=== PATIENT | female | born 1985 | race Caucasian/White ===

== ENCOUNTER 2018-01-15 19:03 | Inpatient (IN) | payer OTHER ==
[2018-01-15 19:54] VITALS: BMI 33.3
[2018-01-15 20:21] LABS: BASO # 0.1 K/uL (0.0-0.2); BASO % 0.8 % (0.0-2.0); EOS # 0.1 K/uL (0.0-0.7); EOS % 0.6 % (0.0-4.0); HEMOGLOBIN 12.7 g/dL (12.0-16.0); LYMPH # 1.6 K/uL (1.0-4.3); LYMPH % 14.3 % (20.0-40.0); MEAN CELL VOLUME 87.1 fl (81.0-99.0); MEAN CORPUSCULAR HEMOGLOBIN 28.3 pg (27.0-31.0); MEAN CORPUSCULAR HGB CONC 32.5 g/dL (33.0-37.0); MEAN PLATELET VOLUME 10.1 fl (7.2-11.7); MONO # 0.9 K/uL (0.0-0.8); MONO % 8.3 % (0.0-10.0); NEUT # 8.5 K/uL (1.8-7.0); NRBC % 0.2 % (0.0-0.0); RBC 4.48 Mil/uL (3.80-5.20); RED CELL DISTRIBUTION WIDTH 14.5 % (11.5-14.5); WHITE BLOOD COUNT 11.2 K/uL (4.8-10.8)
[2018-01-15 20:44] LABS: CALCIUM 9.7 mg/dL (8.4-10.2); GFR AFRICAN-AMERICAN > 60; GFR NON-AFRICAN AMERICAN > 60
[2018-01-15 20:46] LABS: ALBUMIN 4.3 g/dL (3.5-5.0); ALT/SGPT 18 U/L (9-52); AST/SGOT 72 U/L (14-36); BLOOD UREA NITROGEN 11 mg/dl (7-17)
[2018-01-15] MEDS ORDERED: Lactated Ringer's 1,000 ML IV SCH (21:30)
[2018-01-15] MEDS ORDERED: Penicillin G Potassium 5 MU in Sodium Chloride 0.9% 50 ML IVPB ONE (21:30)
--- NOTE | 2018-01-15 22:39 | OBADHP ---
Datetime: 01/15/2018 21:32 Pelvic Type - PN: Adequate Extremities - PN: Normal Abdomen - PN: Normal Back - PN: Not Done Breast - PN: Not Done Lungs - PN: Normal Heart - PN: Normal Thyroid - PN: Not Done Neurologic - PN: Normal HEENT - PN: Normal General - PN: Normal FHR - Baseline A Provider: 150 Membranes, Provider: Intact Vital Signs Provider: Reviewed Vital Signs Provider Details: elavated bp IP Chief Complaint: Uterine contractions Dilatation, Provider: 1-2 Effacement, Provider: 80 Station, Provider: 0 Genitourinary Exam: Normal DTRs - PN: Not Done EGA AdmitDate IP: 39.4 IP Adm Impression: Term, intrauterine IP Admit Plan: Admit to unit; Initiate labor protocol; Initiate labor induction protocol Datetime: 01/15/2018 19:52 Admit Comment, IP Provider: CC: ctx HPI 32 YO @39.4wks IUP (ASA 01/18 by LMP) presents to [facility] for ctx. Pt states that her ctx sta rted around 4:30AM and since onset, ctx have become more intense. Currently feeling then Q18-23 mins. Endorsing good FM, small amount of VB this AM, +ctx and LOF. Denies chest pain, dyspnea, blurry visi on, RUQ pain, diplopia, n/v/d/c, fevers. MD: Dr. Self ObHx/GYnhx: uncomplicated thus far, prime. Rh neg, s/p rhogam x 1. quantiferon pos, CXR post delivery. Denies STIs PMH: denies SurgH: denies SH: denies ETOH, smoking and illict drug use FH: denies Allergies: NKDA Meds: PNV PE: Vitals: elevated BP Gen: NAD Cardio: S1S2 no addition heart sounds Resp: clear breath sounds b/l Abdomen: gravid, BS+, NT neuro: AAO x 3 Extremities: no edema noted, NT FM: 160, catagory I cervx: 1.5/80/0 A/P: 32 YO @39.4wks IUP is in early laborl with elevated BPs. GBS+, RPR neg, HIV neg, RH neg, quantiferon pos, CXR post delivery, hep B neg, Rubella immune. -PIH workup -continue FM -vitals -will reevaluate Pt seen with Dr. Aramis Flanagan, PGY I obh addendum: pt seen _ examined by me. agree with above assessment and plan. NICHD Variability Prov Fetus A: Moderate 6-25bpm NICHD Accel Fetus A IP Provider: 15X15 FHR Category Provider Fetus A: Category I
--- NOTE | 2018-01-15 22:44 | OBADHP ---
Datetime: 01/15/2018 21:32 Admit Comment, IP Provider: CC: CTX HPI 32 YO @39.4wks IUP (ASA 01/18 by LMP) presents to [facility] for ctx. Pt states that her ctx sta rted around 4:30AM and since onset, ctx have become more intense. Currently feeling then Q18-23 mins. Endorsing good FM, small amount of VB this AM, +ctx and LOF. Denies chest pain, dyspnea, blurry visi on, RUQ pain, diplopia, n/v/d/c, fevers. MD: Dr. Self ObHx/GYnhx: uncomplicated thus far, prime. Rh neg, s/p rhogam x 1. quantiferon pos, CXR post delivery. Denies STIs PMH: denies SurgH: denies SH: denies ETOH, smoking and illict drug use FH: denies Allergies: NKDA Meds: PNV PE: Vitals: elevated BP Gen: NAD Cardio: S1S2 no addition heart sounds Resp: clear breath sounds b/l Abdomen: gravid, BS+, NT neuro: AAO x 3 Extremities: no edema noted, NT FM: 160, catagory I cervx: 1.5/80/0 A/P: 32 YO @39.4wks IUP is in early laborl with elevated BPs. GBS+, RPR neg, HIV neg, RH neg (s/p rho x 1), quantiferon pos- CXR post delivery, hep B neg, Rubella immune. -admit patient -will start IOL protocal -type and screen -IV fluids -continue FM -vitals Pt seen and re-evaluated. BP remains elevated, last bp 148/79. Blood work sig for elevated LDH of 935. Pt remains asymptomatic, denies headache, blurry vision, n/v/d/c, RUQ pain. Occasional ctx on mo nitor. Will admit patient for IOL. [facility] ob attending addendum: Impression: #1 elevated blood pressure and associated with elevated LDH and AST #2 latent phase labor Plan admit for induction EGA AdmitDate IP: 39.4
[2018-01-16] MEDS ORDERED: Bupivacaine HCl 0.25% PF (10 ml) Inj ONE (01:52)
[2018-01-16] MEDS ORDERED: Fentanyl/Bupivacaine HCl 250 ML EPI ONE (01:52)
[2018-01-16] MEDS: Lactated Ringer's 1,000 ML IV SCH ×4 (02:00→19:58)
[2018-01-16] MEDS ORDERED: ceFAZolin 2 GM in Sodium Chloride 0.9% 100 ML IVPB ONE (03:10)
[2018-01-16] MEDS ORDERED: Oxytocin 30 units/LR 500ML 30 UNITS/500 ML BAG IV ONE (03:12)
[2018-01-16] MEDS ORDERED: Lidocaine 2% PF (10 ml) Amp ONE ×2 (03:17→03:41)
[2018-01-16] MEDS ORDERED: Morphine 1 mg/ml preservative-free Inj(Duramorph) ONE (04:02)
[2018-01-16] MEDS ORDERED: Cellulose Hemostat 2X3 Sheet ONE (04:34)
[2018-01-16] MEDS ORDERED: Oxytocin 10 Units/ml Inj ONE (04:50)
[2018-01-16] MEDS ORDERED: Oxycodone/Acetaminophen 5/325 mg Tab PO PRN ×4 (05:15→08:42)
[2018-01-16] MEDS ORDERED: DiphenhydrAMINE 50 mg/ml Inj IVP PRN ×2 (05:50→08:42)
[2018-01-16] MEDS ORDERED: Naloxone 0.4 mg/ml Inj (Adult) IVP PRN ×2 (05:50→08:42)
--- NOTE | 2018-01-16 06:05 | OBDS ---
DELIVERY PERSONNEL Delivery Doctor: Yadira Kong MD Day Light Relief Operator: Shirley Samuels RN Anesthesiologist: America Smart MD Resident: Rose Flanagan MD MATERNAL INFORMATION Delivery Anesthesia: Epidural Medications in Delivery: Pitocin 30 units in 500 mls/Surigcel Placenta Cultured: Yes Maternal Complications: None Provider Comments: preop dx: intolerance to labor; 39.5wks postop dx: same ob: [facility] 1st asst: ap pgy1 anesth: dr smart ebl 800cc findings: viable male 7lb 8oz; 8_9; clear amniotic fluid neon to nbn pt to rr LABOR SUMMARY EDC: 01/18/2018 00:00 No. Babies in Womb: 1 Attempted: No Labor Anesthesia: Epidural LABOR INFORMATION Reason for Induction: Other Reason for Induction Other: Elevated BPs Onset of Labor: 01/15/2018 22:30 Cervical Ripening Agents: Cervidil Other Ripening Agents: Cervidil placed by Dr. Flanagan, PGY1. Pt tolerated well. Oxytocin: N/A Group B Beta Strep: Positive Antibiotics # of Doses: 1 Antibiotics Time of Last Dose: 2330 Steroids Given: None Reason Steroids Not Administered: Not Applicable MEMBRANES Membranes Rupture Method: Artificial Rupture of Membranes: 01/16/2018 03:48 Length of Rupture (hrs): 0.00 Amniotic Fluid Color: Clear Amniotic Fluid Amount: Moderate Amniotic Fluid Odor: Normal STAGES OF LABOR Stage 3 hrs: 0 Stage 3 min: 1 Total Time in Labor hrs: 5 Total Time in Labor min: 19 CSECTION DELIVERY Primary Indication: Other Other Primary Indication: intolerance to labor Secondary Indication: N/A CSection Urgency: Non Elective CSection Incidence: Primary Labor: Labor Elective: Nonelective CSection Incision: Lower Uterine Transverse BABY A INFORMATION Infant Delivery Date/Time: 01/16/2018 03:48 Method of Delivery: Born in Route : No : N/A Forceps: N/A Vacuum Extraction: N/A Shoulder Dystocia : No SHOULDER DYSTOCIA BABY A Delivery Date/Time: 01/16/2018 03:48 PRESENTATION/POSITION BABY A Presentation: Cephalic Cephalic Presentation: Vertex Breech Presentation: N/A PLACENTA INFORMATION BABY A Placenta Delivery Time : 01/16/2018 03:49 Placenta Method of Delivery: Manual Removal Placenta Status: Delivered SCORES BABY A Heart Rate 1 min: >100 bpm Resp Effort 1 min: Good Cry Reflex Irritability 1 min: Cough or Sneeze or Pulls Away Muscle Tone 1 min: Active Motion Color 1 min: Blue/Pale SCORE 1 MIN: 8 Heart Rate 5 min: >100 bpm Resp Effort 5 min: Good Cry Reflex Irritability 5 min: Cough or Sneeze or Pulls Away Muscle Tone 5 min: Active Motion Color 5 min: Body [place], Extremities Blue SCORE 5 MIN: 9 INFORMATION BABY A Gestational Age at Delivery: 39.6 Gestational Status: Term Infant Outcome : Liveborn Infant Condition : Stable Infant Sex: Male IDENTIFICATION/MEDS BABY A ID Band Number: [id number] ID Band Location: Left Leg; Left Arm WEIGHT/LENGTH BABY A Birthweight (gms): 3410 Weight (lb): 7 Infant Weight (oz): 8 CORD INFORMATION BABY A No. Cord Vessels: 3 Nuchal Cord : N/A Nuchal Cord Other: N/A True Knot: N/A Cord Blood Taken: Yes Banking/Donate Info: N/A Suction: Mouth; Nose ASSESSMENT BABY A Complications: Extended Tachycardia; Multiple Late Decels; Multiple Variable Decels Physical Findings at Delivery: Within Normal Limits Infant Respirations: Appears Normal Safety Representative/ALS Called : No Care By: Dr. Braswell/Andrey Transferred To: [facility] (Annotations: Data stored by N on behalf of user)
[2018-01-16] MEDS ORDERED: Oxytocin 30 units/LR 500ML 30 UNITS/500 ML BAG IV SCH (07:30)
[2018-01-16] MEDS: Prenatal Multivit/Folic Acid/Iron Tab PO SCH (09:00)
[2018-01-16] MEDS ORDERED: Prenatal Multivit/Folic Acid/Iron Tab PO SCH (09:00)
--- NOTE | 2018-01-16 09:24 | OBHP ---
Datetime: 01/15/2018 21:32 IP Adm Impression: Term, intrauterine IP Admit Plan: Admit to unit; Initiate labor protocol; Initiate labor induction protocol Pelvic Type - PN: Adequate Extremities - PN: Normal Abdomen - PN: Normal Back - PN: Not Done Breast - PN: Not Done Lungs - PN: Normal Heart - PN: Normal Thyroid - PN: Not Done Neurologic - PN: Normal HEENT - PN: Normal General - PN: Normal FHR - Baseline A Provider: 150 Membranes, Provider: Intact EGA AdmitDate IP: 39.4 Vital Signs Provider: Reviewed Vital Signs Provider Details: elavated bp IP Indication for Induction: Other IP Indication for Induction Oth: elevated bp, with elevated ldh IP Chief Complaint: Uterine contractions Dilatation, Provider: 1-2 Effacement, Provider: 80 Station, Provider: 0 Genitourinary Exam: Normal DTRs - PN: Not Done Datetime: 01/15/2018 19:52 Admit Comment, IP Provider: CC: ctx HPI 32 YO @39.4wks IUP (ASA 01/18 by LMP) presents to [facility] for ctx. Pt states that her ctx sta rted around 4:30AM and since onset, ctx have become more intense. Currently feeling then Q18-23 mins. Endorsing good FM, small amount of VB this AM, +ctx and LOF. Denies chest pain, dyspnea, blurry visi on, RUQ pain, diplopia, n/v/d/c, fevers. MD: Dr. Self ObHx/GYnhx: uncomplicated thus far, prime. Rh neg, s/p rhogam x 1. quantiferon pos, CXR post delivery. Denies STIs PMH: denies SurgH: denies SH: denies ETOH, smoking and illict drug use FH: denies Allergies: NKDA Meds: PNV PE: Vitals: elevated BP Gen: NAD Cardio: S1S2 no addition heart sounds Resp: clear breath sounds b/l Abdomen: gravid, BS+, NT neuro: AAO x 3 Extremities: no edema noted, NT FM: 160, catagory I cervx: 1.5/80/0 A/P: 32 YO @39.4wks IUP is in early laborl with elevated BPs. GBS+, RPR neg, HIV neg, RH neg, quantiferon pos, CXR post delivery, hep B neg, Rubella immune. -PIH workup -continue FM -vitals -will reevaluate Pt seen with Dr. Aramis Flanagan, PGY I obh addendum: pt seen _ examined by me. agree with above assessment and plan. NICHD Variability Prov Fetus A: Moderate 6-25bpm NICHD Accel Fetus A IP Provider: 15X15 FHR Category Provider Fetus A: Category I
--- NOTE | 2018-01-16 11:19 | OP ---
PROCEDURE DATE: PREOPERATIVE DIAGNOSIS: intolerance to contractions at 39.5 weeks' . POSTOPERATIVE DIAGNOSIS: intolerance to contractions at 39.5 weeks' . ADDITIONAL DIAGNOSIS: Vaginal from anterior vaginal wall to the posterior vaginal wall. PROCEDURE: Primary low transverse section. SURGEON: Long Self MD COMPOUNDER HELPER: Dr. Rose Flanagan, PGY-1 TYPE OF ANESTHESIA: Epidural. ANESTHESIA ADMINISTERED BY: Nitin Lopez MD ESTIMATED BLOOD LOSS: 800 mL. COMPLICATIONS: None. FINDINGS: Showed a viable male infant in left occiput posterior presentation, clear amniotic fluid, a weight of 7 pounds 8 ounces, Apgars of 8 and 9, and arterial cord pH of 7.14. PATHOLOGY: Placenta sent to pathology. DESTINATION: to Nursery and the patient to recovery room in satisfactory condition. INDICATIONS: The patient is a 32-year-old female who presented at 39.4 weeks. She is a 1 with complaints of contractions. At this time the patient presented, she was noted to have elevated blood pressure with the systolic up to the 140s. Blood work revealed an elevated LDH and elevated liver function test. it was, therefore, decided to admit the patient and proceed with augmentation of her latent phase labor. Cervidil was placed for labor induction, and the patient did develop a variable decelerations with the increased amount of contractions. It was decided to proceed with a primary section. Risks, benefits, and indications were discussed with the patient and she agreed with planned procedure. DESCRIPTION OF PROCEDURE: The patient was taken to the operating room where she was placed in dorsal supine position. She was prepped and draped in the routine sterile fashion. A Pfannenstiel skin incision was made with the knife and this was carried down to the underlying rectus fascia with the Bovie and the Ramos. The inferior rectus fascial edge was grasped with Ned and elevated the underlying rectus muscle was dissected off. The same procedure was performed along the superior rectus fascial edge. The peritoneum was identified, tented upwards and incised superiorly and inferiorly. The bladder blade was placed and the bladder flap was created using sharp and blunt dissection. A low uterine transverse incision was made with the scalpel and the uterine incision was extended in an anterior posterior manner. The was noted to be in the left occiput, posterior presentation. The was delivered in the routine fashion. The Mouth and nares were suctioned. The cord was clamped and cut. The baby was handed off to the awaiting clinical documentation specialist. A segment of the cord was obtained to sent for cord arterial pH. Cord blood was collected. The placenta was expressed spontaneously. The uterus was exteriorized and cleared of all clots and debris. The uterine incision was reapproximated with 0 Vicryl in a running locked fashion followed by an imbricated stitch with 0 Monocryl. The abdomen and pelvis were irrigated and cleared of all clots and debris. The uterine incision was reinspected. Good hemostasis was confirmed. Surgicel was placed in the left and right lateral corners of the uterus. The peritoneum was reapproximated with 2-0 Vicryl in a running fashion. The fascia was reapproximated with 0 Vicryl in a running fashion. The wound was irrigated and good hemostasis was confirmed. The subcutaneous tissue was reapproximated with 2-0 plain in a simple interrupted fashion. The skin was reapproximated with 0 Vicryl in a subcuticular fashion. All sponge, lap, and needle counts were correct x4. The patient returned to recovery room in satisfactory condition and nursery. Long Self MD
[2018-01-16 19:46] LABS: BASO % 0.1 % (0.0-2.0); EOS % 0.2 % (0.0-4.0); LYMPH # 1.3 K/uL (1.0-4.3); LYMPH % 10.4 % (20.0-40.0); MEAN CELL VOLUME 86.9 fl (81.0-99.0); MEAN CORPUSCULAR HEMOGLOBIN 28.4 pg (27.0-31.0); MEAN CORPUSCULAR HGB CONC 32.6 g/dL (33.0-37.0); MONO # 1.1 K/uL (0.0-0.8); MONO % 9.3 % (0.0-10.0); NEUT # 9.9 K/uL (1.8-7.0); RBC 3.68 Mil/uL (3.80-5.20); RED CELL DISTRIBUTION WIDTH 14.2 % (11.5-14.5); WHITE BLOOD COUNT 12.3 K/uL (4.8-10.8)
[2018-01-16 20:38] LABS: HEMOGLOBIN 10.4 g/dL (12.0-16.0)
--- NOTE | 2018-01-17 07:42 | OBPPN ---
Datetime: 01/17/2018 07:35 PP Pain Prov: Within normal limits PP Nausea Prov: Denies PP Flatus Prov: No PP BM Prov: No PP Abdomen/Uterus Prov: Normal PP Lochia Prov: Normal PP C/S Incision Prov: Normal PP Progress Prov: Normal PP Comments Phys Exam Prov: Incision: bandage in place PP Impression Prov: Normal progression PP Plan Prov: Continue present management PP Progress Note Prov: POD 1 s/p cesrean section for intolerance to labor Continue current care Vital Signs Provider PP: Reviewed
[2018-01-17] MEDS: Prenatal Multivit/Folic Acid/Iron Tab PO SCH (10:22)
[2018-01-18] MEDS: Prenatal Multivit/Folic Acid/Iron Tab PO SCH (08:36)
--- NOTE | 2018-01-18 14:32 | OBPPN ---
Datetime: 01/18/2018 14:22 PP Pain Prov: Within normal limits PP Nausea Prov: Denies PP Flatus Prov: Yes PP BM Prov: Yes PP Breasts Prov: Normal PP Heart Prov: Normal PP Lungs Prov: Normal PP Abdomen/Uterus Prov: Normal PP Lochia Prov: Normal PP Vulva/Perineum Prov: Normal PP CVA Tenderness Prov: Normal PP Extremities Prov: Normal PP C/S Incision Prov: Normal PP Progress Prov: Normal PP Comments Phys Exam Prov: Incision clean, dry, intact. Uterus firm, below umbilicus No deep calf tenderness bilaterally PP Impression Prov: Normal progression PP Plan Prov: Continue present management PP Progress Note Prov: Postoperative #2 status post , recovering well Regular diet Pain control Patient out of bed, ambulate Anticipate discharge home tomorrow IP PP Procedures: None Vital Signs Provider PP: Reviewed; Within Normal Limits
--- NOTE | 2018-01-19 08:15 | OBPPN ---
Datetime: 01/19/2018 08:13 PP Pain Prov: Within normal limits PP Nausea Prov: Denies PP Flatus Prov: Yes PP Breasts Prov: Not Done PP Heart Prov: Normal PP Lungs Prov: Normal PP Abdomen/Uterus Prov: Not Done PP Lochia Prov: Not Done PP Vulva/Perineum Prov: Not Done PP CVA Tenderness Prov: Normal PP Extremities Prov: Normal PP C/S Incision Prov: Normal PP Impression Prov: Normal progression PP Plan Prov: Discharge PP Progress Note Prov: She did well ambulating tolerating diet Vital signs stable Uterus firm below the umbilicus Incision clean dry and intact Postoperative day #3 Patient cleared for discharge Prescriptions provided No heavy lifting nothing per vagina Vital Signs Provider PP: Reviewed
--- NOTE | 2018-01-19 08:17 | OBDCSUM ---
Datetime: 01/19/2018 08:14 Discharged to, Provider: Home Follow up at, Provider: [facility] Instr Activity: Normal activity Disch Instr Diet: Regular Discharge Instructions, Provider: Routine instructions given Discharge Diagnosis, Provider: Term Delivered Follow up in weeks, Provider: 1 week Disch Referrals: None Contraception discussed, Prov: Yes Disch Activity Restrictions: Nothing in vagina - Beasley, tampons, douche Discharge Comment, Provider: Patient cleared for discharge Contraception after Delivery: Undecided
[2018-01-19] MEDS: Prenatal Multivit/Folic Acid/Iron Tab PO SCH (09:01)
[2018-01-19 18:17] VITALS: BP 127/71; PULSE 100; RESP 20; TEMP 98.1; O2SAT 99
== END 2018-01-19 14:10 | disposition home or self-care (01) | DRG 766 ==
LOC: H.EROB2 19:03 → H.L&D 21:28 → H.OB/GYN 01-16 08:35
PROVIDERS: ADMIT Obstetrics & Gynecology; ATTEND Obstetrics & Gynecology
PROC: 10D00Z1 Extraction of Products of Conception, Low, Open Approach (ICD-10-PCS; principal; 2018-01-15)
PROC: 4A1HXCZ Monitoring of Products of Conception, Cardiac Rate, External Approach (ICD-10-PCS; 2018-01-15)
DX: O76 Abnormality in fetal heart rate and rhythm complicating labor and delivery (principal); Z37.0 Single live birth; O99.824 Streptococcus B carrier state complicating childbirth; Z3A.39 39 weeks gestation of pregnancy

== ENCOUNTER 2018-01-15 21:27 | Emergency (ER) | payer OTHER ==
[2018-01-15 19:54] VITALS: BMI 33.3
== END 2018-01-15 21:28 ==
LOC: H.ER 21:27
DX: O76 Abnormality in fetal heart rate and rhythm complicating labor and delivery (principal); Z37.0 Single live birth; O99.824 Streptococcus B carrier state complicating childbirth; Z3A.39 39 weeks gestation of pregnancy